=== PATIENT | female | born 2000 | race Caucasian/White ===

== ENCOUNTER 2023-04-22 07:59 | Outpatient (CLI) | payer OTHER, SELFPAY | END 2023-04-22 08:00 | disposition home or self-care (01) | PROVIDERS: PCP Family Medicine; Visit Provider Family Medicine | DX: Z11.3 Encounter for screening for infections with a predominantly sexual mode of transmission (principal) | CPT/HCPCS: 86592; 86703; 86803; 87491; 87591 ==

== ENCOUNTER 2023-05-10 13:07 | Emergency (ER) | payer OTHER, SELFPAY ==
[2023-05-10 13:23] VITALS: BP 120/65; PULSE 78; RESP 18; TEMP 37; O2SAT 100; BMI 25.7
--- NOTE | 2023-05-10 13:35 | ED_ITS ---
HPI - Chest Pain General Time Seen by Provider: 13:35 Date Seen: 05/10/23 Chief Complaint: Chest Pain Stated Complaint: Chest tightness Time Seen by Provider: 05/10/23 13:08 Source: patient and RN notes reviewed Mode of arrival: ambulatory Limitations: no limitations History of Present Illness HPI narrative: Patient is a 22-year-old female referred by Urgent Care to the ER for possible need of increased workup for right-sided chest pain. Patient awoke Wednesday morning with right-sided chest symptoms as best she can remember. She believes it was there when she woke up. It is gotten worse. There is pain that is definitely pleuritic, worsens with breathing. She is not short of breath, had a sore throat for few days before this started. No cough. No fevers or chills. No GI symptoms. There is a cousin that of age 32 from inconclusive , sounds like it was a sudden , possible cardiac with potential for conduction system suspicions. There is also gallbladder disease in the family. She has been eating and drinking fine, no GI symptoms with this. She tried ibuprofen last night but went to sleep so she is not clear if it helped or not. She will wake up with position changes at night but goes back to sleep. MD complaint: chest pain Timing of current episode: constant Related Data On Oral Contraceptives: Yes (Nexplanon) Previous Rx's Medication Instructions Recorded propranolol 10 mg tablet 10 mg PO TID PRN anxiety #90 tabs 08/10/22 bupropion HCl 150 mg 24 hr tablet, 150 mg PO QAM #90 tabs 03/11/23 extended release (Wellbutrin XL) lisdexamfetamine 70 mg capsule 70 mg PO QAM #30 caps 04/15/23 (Vyvanse) valacyclovir 1 gram tablet 2,000 mg (2 x 1 gram) PO BID 1 day 04/22/23 (Valtrex) #4 tabs ketorolac 10 mg tablet 10 mg PO Q6H PRN pain 5 days #20 05/10/23 tabs Allergies Allergy/AdvReac Type Severity Reaction Status Date / Time No Known Allergies Allergy Unknown unknown Uncoded 04/22/23 07:48 Review of Systems Status of ROS Reports: 6 or more systems reviewed and unremarkable except as noted in History and below PFSH PFS Social History Smoking Status: Former smoker Do you use any of these nicotine containing products: Vaping Products Second hand tobacco smoke exposure: No How often do you have a drink containing alcohol: 2-4 times a month How many standard drinks containing alcohol do you have on a typical day: 1 or 2 How often do you have six or more drinks on one occasion: Never AUDIT-C Alcohol total score: 2 Non-prescribed substance use: denies use Little interest or pleasure in doing things: several days Feeling down, depressed, or hopeless: several days service: No Exam Const Vital Signs, click to edit/add: Vital Signs - 24 hr 05/10/23 13:23 05/10/23 14:13 05/10/23 14:30 Temperature 98.6 F Pulse Rate [Pulse Oximeter] 78 75 Respiratory Rate 18 16 Blood Pressure [Right Upper Arm] 120/65 127/90 H Pulse Oximetry 100 99 99 Oxygen Delivery Method Room Air Room Air Documenting provider has reviewed patient's vital signs: yes Common normals: no apparent distress, average body habitus, oriented x3, no limitations, healthy appearing, alert and well nourished General appearance: cooperative, comfortable, well kempt and well developed HENAR Common normals: normocephalic, head/scalp atraumatic, hearing grossly normal bilaterally, external ears normal, EAC's normal, TM's normal bilaterally, external nose normal, nasal mucous membranes and turbinates normal, moist oral mucous membranes, oropharynx normal, dentition normal and gingiva normal Head and scalp: normocephalic and atraumatic Nose: external nose normal and nasal mucous membranes and turbinates normal External ear: external ears normal External auditory canal: EAC's normal Tympanic membrane: TM's normal bilaterally Eye Common normals: PERRL, EOMs intact bilaterally, conjunctivae normal and no scleral icterus Conjunctiva: conjunctiva(e) normal Pupil: PERRL Neck & C-Spine Common normals: full ROM, no lymphadenopathy, supple, no meningeal signs, no JVD and thyroid normal Thyroid: thyroid normal Lymph Lymphatic: no lymphadenopathy noted Chest Common normals: inspection of chest normal Other: She has no costochondral junction pain. She is however painful over the right anterior chest wall without any palpable masses, this seems to be above breast tissue area. Resp Common normals: normal respiratory effort, no retractions, no use of accessory muscles and clear to auscultation bilaterally Effort & inspection: able to speak in complete sentences Auscultation: clear to auscultation bilaterally Cardio Common normals: no JVD, regular rate, regular rhythm, S1 normal heart sound, S2 normal heart sound, no gallops, no clicks and no murmurs Rate: regular rate Rhythm: regular rhythm Heart sounds: S1 normal and S2 normal GI Common normals: Normal to inspection, nondistended, normoactive bowel sounds present, soft to palpation, non-tender, no hepatosplenomegaly and no masses Palpation: soft and no hepatosplenomegaly Extremity Common normals: normal to inspection, full ROM, no calf tenderness and no pedal edema Neuro Common normals: oriented x3 and moves all extremities Sensorium/orientation: alert Meningeal signs: no meningeal signs Psych Appearance: well kempt Course Course Hospital Course: Reviewed with Palma and her mom whom is present that this certainly seems like it pleuritic condition. We will obtain troponin but have reassured them that her EKG looks good. She is not hypoxic. If point of care troponin is normal, do think we should try some IV Toradol. Will do full complement of labs including D-dimer. She is completely nontender on her abdominal exam, really have low suspicion for anything GI here such as gallbladder disease. We will see what the labs show. Likely pleurisy but rule out underlying cardiac conditions including but not limited to non STEMI, myocarditis, thromboembolic disease as well. Would recommend that we test for Covid as well. Reevaluation(s) Time of Reevaluation #1: 14:47 Reevaluation #1: Patient's point of care troponin is normal. Will proceed with 15 mg IV Toradol to see if this helps alleviate her symptoms. Time of Reevaluation #2: 15:38 Reevaluation #2: Reviewed with patient her normal chest x-ray, no COVID, normal troponin, normal CBC, normal chemistries outside of elevated D-dimer. We will proceed with chest CT PE protocol to ensure no underlying thrombotic disease but still favor pleurisy if there is no PE on this test. Have also reviewed that we certainly will not miss any pneumonia on chest imaging, we get quite detailed pictures. Patient just got her Toradol, is unsure if it is helping or not but states she has also just lying around. Time of Reevaluation #3: 17:56 Reevaluation #3: Have reviewed CT findings. There is nonspecific lymphadenopathy. Reviewed that this certainly could fit with the viral picture with pleurisy. We did discuss that if symptoms are ongoing or there is worsening, potential further evaluation may be warranted with specialty needs. At this time though, would try to just focus that this certainly should be treated as self-limited pleurisy, C reactive protein and CBC were certainly normal. There was no evidence of any pulmonary embolus. Dad is here now, he has factor 5 Leiden and there is an aunt with some clotting disorder. Reviewed with them that there was no evidence chest CT confirmed pulmonary embolus. She definitely feels that the Toradol helped. Vital Signs Vital signs: Initial Vital Signs Temperature 98.6 F 05/10/23 13:23 Temperature Source Temporal Artery Scan 05/10/23 13:23 Pulse Rate 78 05/10/23 13:23 Pulse Rhythm Regular 05/10/23 13:23 Respiratory Rate 18 05/10/23 13:23 Blood Pressure 120/65 05/10/23 13:23 Blood Pressure Mean 83 05/10/23 13:23 Blood Pressure Position Sitting 05/10/23 13:23 Pulse Oximetry 100 05/10/23 13:23 Oxygen Delivery Method Room Air 05/10/23 13:23 Vital Signs Temperature 98.6 F 05/10/23 13:23 Pulse Rate 78 05/10/23 13:23 Respiratory Rate 18 05/10/23 13:23 Blood Pressure 120/65 05/10/23 13:23 Pulse Oximetry 100 05/10/23 13:23 Oxygen Delivery Method Room Air 05/10/23 13:23 Temperature 98.6 F 05/10/23 13:23 Pulse Rate 75 05/10/23 14:30 Respiratory Rate 16 05/10/23 14:30 Blood Pressure 127/90 H 05/10/23 14:30 Pulse Oximetry 99 05/10/23 14:30 Oxygen Delivery Method Room Air 05/10/23 14:30 MDM - Chest Pain Lab Data Attestation: I reviewed the patient's lab results. Labs: Lab Results 05/10/23 05/10/23 05/10/23 Range/Units 14:00 14:04 14:11 WBC 5.18 (4.50-11.00) K/uL RBC 4.53 (4.00-5.20) m/uL Hgb 12.6 (12.0-16.0) gm/dL Hct 39.2 (33.0-51.0) % MCV 87 (80-100) fL MCH 28 (26-34) pg MCHC 32 (32-36) gm/dL RDW Coeff of Nathan 13.4 (11.5-15.5) % Plt Count 253 (140-440) K/uL Neut % (Auto) 57.8 (42.0-72.0) % Lymph % (Auto) 31.7 (20-44) % [place] % (Auto) 7.9 (0.0-11.0) % Eos % (Auto) 1.0 (0.0-7.0) % Baso % (Auto) 0.6 (0.0-3.0) % Neut # (Auto) 3.00 (1.7-7.0) K/uL Lymph # (Auto) 1.64 (0.90-2.90) K/uL [place] # (Auto) 0.40 (0.00-0.90) K/UL Eos # (Auto) 0.05 (0.00-0.50) K/uL Baso # (Auto) 0.03 (0.00-0.30) K/uL Abs Immat Gran (auto) 0.05 (0.00-0.30) K/uL Imm/Tot Granulo (auto) 1.0 % D-Dimer Quant (PE/DVT) (0.00-0.50) ug/ml Sodium (135-149) mmol/L Potassium (3.6-5.1) mmol/L Chloride (96-114) mmol/L Carbon Dioxide (20-32) mmol/L BUN (5-24) mg/dL Creatinine (0.5-1.5) mg/dL Estimated Creat Clear Estimated GFR ml/min Glucose (60-115) mg/dL Lactate (0.5-1.9) mmol/L Calcium (8.4-10.6) mg/dL Total Bilirubin (0.1-1.5) mg/dL AST (12-35) U/L ALT (4-35) U/L Alkaline Phosphatase (40-150) U/L C-Reactive Protein (0.5-1.0) mg/dL NT-Pro-B Natriuret Pep pg/mL Total Protein (6.0-8.3) g/dL Albumin (3.3-5.0) g/dL SARS-CoV-2 (PCR) Negative SARS-CoV-2 (Negative) POC Troponin I 0.00 L (0.01-0.04) ng/ml 05/10/23 Range/Units 14:15 WBC (4.50-11.00) K/uL RBC (4.00-5.20) m/uL Hgb (12.0-16.0) gm/dL Hct (33.0-51.0) % MCV (80-100) fL MCH (26-34) pg MCHC (32-36) gm/dL RDW Coeff of Nathan (11.5-15.5) % Plt Count (140-440) K/uL Neut % (Auto) (42.0-72.0) % Lymph % (Auto) (20-44) % [place] % (Auto) (0.0-11.0) % Eos % (Auto) (0.0-7.0) % Baso % (Auto) (0.0-3.0) % Neut # (Auto) (1.7-7.0) K/uL Lymph # (Auto) (0.90-2.90) K/uL [place] # (Auto) (0.00-0.90) K/UL Eos # (Auto) (0.00-0.50) K/uL Baso # (Auto) (0.00-0.30) K/uL Abs Immat Gran (auto) (0.00-0.30) K/uL Imm/Tot Granulo (auto) % D-Dimer Quant (PE/DVT) 1.40 H (0.00-0.50) ug/ml Sodium 138 (135-149) mmol/L Potassium 3.2 L (3.6-5.1) mmol/L Chloride 104 (96-114) mmol/L Carbon Dioxide 26 (20-32) mmol/L BUN 7 (5-24) mg/dL Creatinine 0.6 (0.5-1.5) mg/dL Estimated Creat Clear 120.63 Estimated GFR 129 ml/min Glucose 86 (60-115) mg/dL Lactate 0.7 (0.5-1.9) mmol/L Calcium 9.1 (8.4-10.6) mg/dL Total Bilirubin 1.1 (0.1-1.5) mg/dL AST 22 (12-35) U/L ALT 24 (4-35) U/L Alkaline Phosphatase 63 (40-150) U/L C-Reactive Protein 1.0 (0.5-1.0) mg/dL NT-Pro-B Natriuret Pep 32 pg/mL Total Protein 7.2 (6.0-8.3) g/dL Albumin 4.2 (3.3-5.0) g/dL SARS-CoV-2 (PCR) (Negative) POC Troponin I (0.01-0.04) ng/ml Imaging Data Chest x-ray: Attestation: I have reviewed the pertinent imaging results. My impression: Cardiac monitoring leads are on but otherwise no acute pathology on my preliminary review. Radiologist's impression: Patient: [facility] Facility:?[facility] Patient ID:?[id number] Site Patient ID:?[id number]. Site :?1999 Study:?XRay Chest 1 VIEW PORTABLE-05/10/2023 2:18:18 PM Ordering Physician:Mila Storm Final Report: INDICATION: Chest pain. TECHNIQUE: Chest 1 views. COMPARISON: None. FINDINGS: Lungs: Normal lung volume. No consolidation. The tracheobronchial tree and hilar structures are unremarkable. Pleura: No pleural effusion or pneumothorax. Heart and Mediastinum: Normal heart size. The great vessels of the thorax are unremarkable. Bones: No acute displaced osseous process. IMPRESSION: No consolidation. Dictated by Domenico Summers MD @ 05/10/2023 3:25:01 PM (Electronic Signature) CT scan - chest: Attestation: I have reviewed the pertinent imaging results. Radiologist's impression: Patient: [facility] Facility:[facility] Patient ID:?[id number] Site Patient ID:?[id number]. Site :?1999 Study:?CT Chest Angio 95CC ISOVUE 370-05/10/2023 4:22:20 PM Ordering Physician:Mila Storm Final Report: INDICATION: Shortness of breath, chest pain and elevated D-dimer. TECHNIQUE: CT chest PE was acquired with 95 cc Isovue 370 intravenous contrast. COMPARISON: None. FINDINGS: Heart and vasculature: Contrast opacification of the pulmonary arterial tree is adequate. No sign of pulmonary embolism. Heart size is normal. Thoracic aorta and pulmonary artery are normal in caliber. Lungs and pleural: No pleural effusion or pneumothorax. Minimal dependent ground-glass opacities left lower lobe, likely subsegmental atelectasis. Lymph nodes/mediastinum: Small soft tissue density in the anterior mediastinum, likely residual thymic tissue. Subcarinal lymph nodes measure 10 millimeters. Right hilar lymph nodes measure 10 millimeters. Chest wall: No masses. Upper abdomen: Normal. Bones: Unremarkable for age. IMPRESSION: 1. No evidence of pulmonary embolus. 2. No acute pulmonary consolidation. 3. Borderline subcarinal and right hilar lymphadenopathy, nonspecific. Follow-up chest CT could be considered in 3 months to assess for regression. Please note that all CT scans at this facility use dose modulation, iterative reconstruction, and/or weight-based dosing when appropriate to reduce radiation dose to as low as reasonably achievable. Dictated by Nish Chaves MD @ 05/10/2023 5:29:48 PM (Electronic Signature) ECG Data Attestation: I personally reviewed and interpreted this ECG as follows: (Sinus rhythm with sinus arrhythmia, 83 beats per minute. No ischemia. QT corrected 437 milliseconds.) ECG interpretation date: 05/10/23 ECG interpretation time: 14:12 Prior ECG tracings: not available for review Discharge Plan Discharge Clinical Impression: Pleurisy without effusion Patient Disposition: Home, Self-Care Condition: Stable Instructions: Pleurisy (ED) Additional Instructions: Tylenol 1000 mg 3 times a day baseline for pain. Initially, we will use Toradol for anti-inflammatory pain management to treat pleurisy, follow instructions for this. Once the Toradol is gone, can move to ibuprofen and follow bottle directions. Do recommend follow up in clinic within the next week for recheck. In the meantime, if you have increasing chest pain, worsening symptoms, difficulty breathing/shortness of breath, develop fever with this, do recommend re-evaluation. Note is provided to be off work. Activity Level: Activity as Tolerated Prescriptions: New ketorolac 10 mg tablet 10 mg PO Q6H PRN (Reason: pain) 5 Days Qty: 20 0RF No Action propranolol 10 mg tablet 10 mg PO TID PRN (Reason: anxiety) Qty: 90 12RF bupropion HCl [Wellbutrin XL] 150 mg tablet extended release 24 hr 150 mg PO QAM Qty: 90 3RF Vyvanse 70 mg capsule 70 mg PO QAM Qty: 30 0RF valacyclovir [Valtrex] 1 gram tablet 2,000 mg PO BID 1 Days Qty: 4 12RF Follow Up/Referrals: Tiana Shell MD [Primary Care Provider] - Stand Alone Forms: [facility] Info Instructions
--- NOTE | 2023-05-10 13:52 | CRLHL7_ITS ---
For Patients: As a result of the Cures Act, medical imaging exams and procedure reports are released immediately into your electronic medical record. You may view this report before your referring provider. If you have questions, please contact your health care provider. INDICATION: Chest pain. TECHNIQUE: Chest 1 views. COMPARISON: None. FINDINGS: Lungs: Normal lung volume. No consolidation. The tracheobronchial tree and hilar structures are unremarkable. Pleura: No pleural effusion or pneumothorax. Heart and Mediastinum: Normal heart size. The great vessels of the thorax are unremarkable. Bones: No acute displaced osseous process. IMPRESSION: No consolidation. Dictated by Domenico Summers MD @ 05/10/2023 3:25:01 PM (Electronically Signed)
[2023-05-10 14:13] VITALS: O2SAT 99
[2023-05-10 14:23] LABS: Lactate* 0.7 mmol/L (0.5-1.9)
[2023-05-10 14:30] VITALS: BP 127/90; PULSE 75; RESP 16; O2SAT 99
[2023-05-10 14:32] LABS: Basophils Absolute Auto 0.03 K/uL (0.00-0.30); Basophils Percent Auto 0.6 % (0.0-3.0); Eosinophils Absolute Auto 0.05 K/uL (0.00-0.50); Hematocrit 39.2 % (33.0-51.0); Hemoglobin* 12.6 gm/dL (12.0-16.0); Immature Granulocytes Abs Auto 0.05 K/uL (0.00-0.30); Lymphocytes Absolute Auto 1.64 K/uL (0.90-2.90); Lymphocytes Percent Auto 31.7 % (20-44); Mean Corpuscular HGB Conc 32 gm/dL (32-36); Mean Corpuscular Hemoglobin 28 pg (26-34); Mean Corpuscular Volume 87 fL (80-100); Monocytes Percent Auto 7.9 % (0.0-11.0); Neutrophils Percent Auto 57.8 % (42.0-72.0); Platelet Count* 253 K/uL (140-440); RDW Coefficient of Variation % 13.4 % (11.5-15.5); Red Blood Count 4.53 m/uL (4.00-5.20); White Blood Count* 5.18 K/uL (4.50-11.00)
[2023-05-10 14:43] LABS: Albumin* 4.2 g/dL (3.3-5.0); Chloride* 104 mmol/L (96-114); Sodium* 138 mmol/L (135-149)
[2023-05-10 14:44] LABS: Potassium* 3.2 mmol/L (3.6-5.1)
[2023-05-10 14:46] LABS: Creatinine* 0.6 mg/dL (0.5-1.5); Est. Creatinine Clearance* 120.63; Estimated Glomerular Filt Rate 129 ml/min
[2023-05-10 14:47] LABS: Slide Review Reflex No
[2023-05-10 14:47] LABS: Alanine Aminotransferase* 24 U/L (4-35); Alkaline Phosphatase* 63 U/L (40-150); Aspartate Amino Transferase* 22 U/L (12-35); Bilirubin Total* 1.1 mg/dL (0.1-1.5); Blood Urea Nitrogen* 7 mg/dL (5-24); Calcium* 9.1 mg/dL (8.4-10.6); Carbon Dioxide* 26 mmol/L (20-32); Glucose* 86 mg/dL (60-115); Total Protein* 7.2 g/dL (6.0-8.3)
[2023-05-10 14:55] LABS: NT Pro B Type NatriureticPept* 32 pg/mL
[2023-05-10] MEDS: KETOROLAC 15 MG/ML inj IVP (15:00)
[2023-05-10 15:20] LABS: SARS PCR* Negative SARS-CoV-2 (Negative)
--- NOTE | 2023-05-10 15:25 | ED.NURSE ---
patient continues to have chest pain rated at 4/10 scale. Mom is at the bedside. resting in the room.
--- NOTE | 2023-05-10 15:33 | CRLHL7_ITS ---
For Patients: As a result of the Century Cures Act, medical imaging exams and procedure reports are released immediately into your electronic medical record. You may view this report before your referring provider. If you have questions, please contact your health care provider. INDICATION: Shortness of breath, chest pain and elevated D-dimer. TECHNIQUE: CT chest PE was acquired with 95 cc Isovue 370 intravenous contrast. COMPARISON: None. FINDINGS: Heart and vasculature: Contrast opacification of the pulmonary arterial tree is adequate. No sign of pulmonary embolism. Heart size is normal. Thoracic aorta and pulmonary artery are normal in caliber. Lungs and pleural: No pleural effusion or pneumothorax. Minimal dependent ground-glass opacities left lower lobe, likely subsegmental atelectasis. Lymph nodes/mediastinum: Small soft tissue density in the anterior mediastinum, likely residual thymic tissue. Subcarinal lymph nodes measure 10 millimeters. Right hilar lymph nodes measure 10 millimeters. Chest wall: No masses. Upper abdomen: Normal. Bones: Unremarkable for age. IMPRESSION: 1. No evidence of pulmonary embolus. 2. No acute pulmonary consolidation. 3. Borderline subcarinal and right hilar lymphadenopathy, nonspecific. Follow-up chest CT could be considered in 3 months to assess for regression. Please note that all CT scans at this facility use dose modulation, iterative reconstruction, and/or weight-based dosing when appropriate to reduce radiation dose to as low as reasonably achievable. Dictated by Nish Chaves MD @ 05/10/2023 5:29:48 PM (Electronically Signed)
== END 2023-05-10 18:17 | disposition home or self-care (01) ==
PROVIDERS: Emergency Provider Family Medicine; PCP Family Medicine
DX: R09.1 Pleurisy (principal)
CPT/HCPCS: 36415; 71045; 71260; 80053; 83605; 83880; 84484; 85025; 85379; 86140; 87635; 93005; 94761; 96374; 99284; 99285; J1885; Q9967